=== PATIENT | male | born 1955 | race Hispanic/Latino ===

== ENCOUNTER 2019-02-04 12:43 | Inpatient (IN) | payer OTHER ==
[~2019-02-04] VITALS: Ht 165.1 cm; Wt 84.8 kg
[2019-02-04 13:27] LABS: BASOPHILS % 0.5 % (0.0-1.0); EOSINOPHILS # (AUTO) 0.1 (0.0-0.4); EOSINOPHILS % 1.9 % (0.0-6.0); LYMPHOCYTES % 25.8 % (18.0-39.1); MEAN CORPUSCULAR HEMOGLOBIN 22.3 pg (28-32); MEAN CORPUSCULAR HGB CONC 26.3 g/dL (31-35); MEAN CORPUSCULAR VOLUME 84.8 fL (81-99); MONOCYTES # (AUTO) 0.4 (0.2-0.8); MONOCYTES % 11.7 % (4.4-11.3); NEUTROPHILS # (AUTO) 2.2 (2.1-6.9); NEUTROPHILS % 59.6 % (38.7-80.0); PLATELET COUNT 141 x10e3/uL (140-360); RED BLOOD COUNT 2.11 x10e6/uL (4.3-5.7); RED CELL DISTRIBUTION WIDTH 16.4 % (11.7-14.4)
[2019-02-04 13:49] LABS: ALANINE AMINOTRANSFERASE 16 IU/L (0-55); ALKALINE PHOSPHATASE 54 IU/L (40-150); BLOOD UREA NITROGEN 14 mg/dL (7-26); BUN/CREATININE RATIO 18 (6-25); CALCIUM 8.1 mg/dL (8.4-10.2); CARBON DIOXIDE 24 mmol/L (22-29); CHLORIDE 106 mmol/L (98-107); CREATINE KINASE 71 IU/L (30-200); CREATININE, SERUM 0.78 mg/dL (0.72-1.25); EST GLOMERULAR FILTRATION RATE > 60 ML/MIN (60-); GLUCOSE 193 mg/dL (74-118); SODIUM 137 mmol/L (136-145)
[2019-02-04 13:51] LABS: HEMATOCRIT 17.9 % (38.2-49.6); HEMOGLOBIN 4.7 g/dL (14.0-18.0)
--- NOTE | 2019-02-04 13:56 | NUR ---
PT BROUGHT BACK TO ROOM 3 AT THIS TIME; DR. LANG PERFORMED BEDSIDE CHRISTOPHER AND OBTAINED SPECIMEN FOR OCCULT STOOL, PER EXAM AT THIS TIME PT IS POSITIVE; PT UPDATED ON PLAN OF CARE AND INTENT TO ADMIT FOR TREATMENT.
[2019-02-04] MEDS ORDERED: SODIUM CHLORIDE 0.9% 250ML 250 ML IV ONE (14:00)
--- NOTE | 2019-02-04 14:06 | NUR ---
DR. LANG EDUCATING PT DAUGHTER AT BEDSIDE IN REGARDS TO TREATMENT AND INTENT TO TRANSFUSE BLOOD, PT AND FAMILY MADE AWARE OF RISKS, BENEFITS, AND ALTERNATIVE TREATMENTS AT THIS TIME; PT DAUGHTER AND MYSELF TRANSLATING FOR DR. LANG AT BEDSIDE AND INFORMING PATIENT. PT SPEAKS MALAGASY AND UNDERSTANDS SOME L[place]OURGISH.
--- NOTE | 2019-02-04 14:16 | Diagnostic Imaging Report ---
A single frontal view of the chest. HISTORY: Swollen feet COMPARISON: None available. DISCUSSION: Portable technique, limits sensitivity of the exam. Overlying monitoring leads. Tubes/Lines: None Lungs and pleura: The lungs are well inflated. No evidence of a consolidative pneumonia or pulmonary alveolar edema. No definite pleural effusion or pneumothorax is identified. Heart and mediastinum: The cardiomediastinal silhouette appear(s) unremarkable. Bones and soft tissues: Appear unremarkable, given this limited exam. IMPRESSION: No acute radiographic abnormality. Signed by: Dr. Octavio Bhatt D.O., M.M.M. on 02/04/2019 2:13 PM
--- NOTE | 2019-02-04 14:18 | NUR ---
RECEIVED CALL FROM LAB REGARDING TYPE AND SCREEN, INFORMED THAT PT BLOOD PRESENT WITH ANTIBODIES FROM PREVIOUS TRANSFUSION (OF NOVEMBER 2018) RECEIVED IN [place], SPECIMENS ARE TO BE SENT OUT TO EXTERNAL CLINICAL LAB.
[2019-02-04 14:28] LABS: ANISOCYTOSIS SLIGHT; HYPOCHROMASIA SLIGHT; PLATELET ESTIMATE ADEQUATE; PLATELET MORPHOLOGY COMMENT NORMAL; RBC MORPHOLOGY COMMENT NORMAL
--- NOTE | 2019-02-04 14:32 | NUR ---
PT GIVEN EDUCATIONAL PAMPHLET FROM [employer] [facility] [place] TO ENSURE PT IS FULLY AWARE OF PLAN OF CARE, PT GIVEN TIME TO ASK QUESTIONS, NONE VOICED AT THIS TIME.
--- NOTE | 2019-02-04 14:38 | NUR ---
AT BEDSIDE TO WITNESS FOR IMFORMED CONSENT, PT OFFERED [employer]RBAN ANTHROPOLOGIST SERVICES, BUT REFUSING AT THIS TIME, STATES THAT HE UNDERSTANDS PROCEDURE AND MY BRUNEIAN, ALONG WITH DAUGHTER IS ABLE TO TRANSLATE. CONSENT FORM FILLED AND PLACED ON CHART AT THIS TIME.
--- NOTE | 2019-02-04 14:52 | NUR ---
PT DENIES ANY SYMPTOMS AT THIS TIME, DENIES BLOOD IN STOOL OR URINE, DENIES WEAKNESS OR FEELING OF SYNCOPE; PT COLOR WNL, NOT PALE OR CLAMMY; PT VITALS REMAIN WNL; PT ON STRETCHER, BED LOW/LOCKED, CALL LIGHT IN EASY REACH.
[2019-02-04] MEDS ORDERED: DEXTROSE 50% SYRINGE 50 ML IV PRN (15:00)
[2019-02-04] MEDS ORDERED: HYDRALAZINE HCL 20 MG/ML VIAL IV PRN (15:00)
--- NOTE | 2019-02-04 15:10 | NUR ---
CALLED DR. LUND ON-CALL LINE REGARDING CT ABD/PEL W/; SPOKE WITH GWYN MCNEAL NP AND OBTAINED APPROVAL TO OBTAIN EXAM TODAY INSTEAD OF TOMORROW AM.
--- NOTE | 2019-02-04 15:59 | Diagnostic Imaging Report ---
EXAM: CT of the abdomen and pelvis WITH contrast HISTORY: Anemia, GI bleed COMPARISON: None. TECHNIQUE: The abdomen and pelvis were scanned utilizing a multidetector helical scanner. Coronal and sagittal reformats are provided. PROTOCOL: Routine IV CONTRAST: 100 cc of Isovue-370. ORAL CONTRAST: None, which limits sensitivity and specificity of the exam. RADIATION DOSE: Total DLP: 511.09 mGy*cm Estimated effective dose: (DLP x 0.015 x size factor) Dose modulation, iterative reconstruction, and/or weight based adjustment of the mA/kV was utilized to reduce the radiation dose to as low as reasonably achievable. COMPLICATIONS: None FINDINGS: LOWER THORAX: Minimal bilateral atelectasis versus scarring. HEPATOBILIARY: No mass. Minimal central intrahepatic biliary prominence and borderline dilation of the common bile duct (0.7 cm in diameter). The gallbladder is predominantly contracted without a calcified stone. SPLEEN: No splenomegaly. PANCREAS: No focal masses or ductal dilatation. ADRENALS: No discrete adrenal nodule. KIDNEYS/URETERS: No hydronephrosis, stones, or definite solid mass lesions. A 0.8 cm hypodensity at the interpolar region of the left kidney, too small to characterize, but statistically most likely a small cyst. PELVIC ORGANS/BLADDER: The visualized pelvic organs appear unremarkable. GI TRACT: No dilation or wall thickening identified. The appendix is normal. PERITONEUM / RETROPERITONEUM: No free air or fluid. LYMPH NODES: No pathologically enlarged lymph node. VESSELS: Diffuse scattered atherosclerotic vascular calcifications. BONES and JOINTS: No aggressive osseous lesion or acute fracture. Mild left convex curvature of the lumbar spine. Moderate left and mild right degenerative changes of the hips. SOFT TISSUES: Very small fat-containing umbilical hernia, without associated inflammatory changes. IMPRESSION: 1. Borderline central intrahepatic and common bile duct dilation, recommend correlation with laboratory values for evidence of biliary obstruction. 2. No specific CT evidence of the source of the reported GI bleed. Signed by: Dr. Octavio Bhatt D.O., M.M.M. on 02/04/2019 3:55 PM
[2019-02-04] MEDS ORDERED: PANTOPRAZOLE SOD 40 MG TABEC PO SCH (16:30)
[2019-02-04] MEDS ORDERED: SODIUM CHLORIDE 0.9% 50ML 50 ML ONE (16:36)
[2019-02-04] MEDS ORDERED: IOPAMIDOL 370 MG/ML 200 ML INFUS..BTL INJ ONE (16:36)
[2019-02-04] MEDS ORDERED: ACETAMINOPHEN 325 MG TAB PO PRN (16:45)
[2019-02-04] MEDS ORDERED: ONDANSETRON HCL INJ 2MG/ML 2ML 2 MG/ML VIAL IV PRN (16:45)
[2019-02-04] MEDS: INSULIN REGULAR, HUMAN 100 UNIT/1 ML 3ML VIAL SQ SCH ×2 (17:35→21:00)
--- NOTE | 2019-02-04 20:38 | NUR ---
Received report from SANDRA Chamberlain nurse. Daughter at bedside. Call light within reach. Patient in no pain or distress.
[2019-02-04 20:59] VITALS: BP 116/56
[2019-02-04] MEDS ORDERED: SODIUM CHLORIDE 0.9% 250ML 500 ML ONE (22:12)
[2019-02-04 22:35] VITALS: BP 116/56
[2019-02-04] MEDS ORDERED: FERROUS FUMARA324 MG PO (22:48)
[2019-02-04] MEDS ORDERED: OMEPRAZOLE40 MG PO (22:48)
[2019-02-04 22:52] VITALS: BP 116/56
[2019-02-04] MEDS ORDERED: PANTOPRAZOLE 40 MG 10ML VIAL IV STA (23:26)
[2019-02-05] VITALS (8 sets, daily range): BP systolic 110–157; BP diastolic 51–72
[2019-02-05 05:58] LABS: BASOPHILS % 0.5 % (0.0-1.0); EOSINOPHILS # (AUTO) 0.1 (0.0-0.4); EOSINOPHILS % 1.5 % (0.0-6.0); HEMATOCRIT 23.8 % (38.2-49.6); LYMPHOCYTES # (AUTO) 1.2 (1.0-3.2); LYMPHOCYTES % 29.4 % (18.0-39.1); MEAN CORPUSCULAR HEMOGLOBIN 22.8 pg (28-32); MEAN CORPUSCULAR HGB CONC 27.7 g/dL (31-35); MEAN CORPUSCULAR VOLUME 82.1 fL (81-99); MONOCYTES # (AUTO) 0.5 (0.2-0.8); MONOCYTES % 13.3 % (4.4-11.3); NEUTROPHILS # (AUTO) 2.2 (2.1-6.9); PLATELET COUNT 124 x10e3/uL (140-360); RED CELL DISTRIBUTION WIDTH 16.2 % (11.7-14.4); RETICULOCYTE % 7.1 % (0.8-2.2)
[2019-02-05 06:10] LABS: HEMOGLOBIN 6.6 g/dL (14.0-18.0)
--- NOTE | 2019-02-05 06:10 | NUR ---
Received critical from lab of patient's hemoglobin being 6.6. Called and talked to CHAN Harrell for Dr. Dhaliwal and told her patient's hemoglobin. She did not give any orders
[2019-02-05 06:36] LABS: FERRITIN 5.02 ng/mL (21.81-274.66); FREE T4 (FREE THYROXINE) 0.65 ng/dL (0.8-1.8); THYROID STIMULATING HORMONE 1.194 uIU/mL (0.350-4.940)
[2019-02-05 06:55] LABS: FOLATE 12.6 ng/mL (7.0-15.4)
--- NOTE | 2019-02-05 07:13 | NUR ---
Gave report to oncoming nurse. Call light within reach. Patient in bed.
[2019-02-05] MEDS ORDERED: MELATONIN 5 MG TABLET PO PRN (07:30)
[2019-02-05] MEDS ORDERED: ALBUTEROL/IPRATROPIUM 3 ML NEB NEB PRN (07:30)
[2019-02-05 07:31] LABS: ANISOCYTOSIS MARKED; HYPOCHROMASIA MODERATE; OVALOCYTES FEW; PLATELET ESTIMATE SLIGHTLY DECREASED; PLATELET MORPHOLOGY COMMENT FEW LARGE; POLYCHROMASIA MODERATE; RBC MORPHOLOGY COMMENT ABNORMAL; TARGET CELLS FEW
[2019-02-05 07:32] LABS: POIKILOCYTOSIS MODERATE
[2019-02-05] MEDS: PANTOPRAZOLE 40 MG 10ML VIAL IV SCH ×2 (08:20→18:36)
[2019-02-05] MEDS ORDERED: BISACODYL 5 MG TAB EC PO PRN (09:45)
[2019-02-05] MEDS ORDERED: BISACODYL 5 MG TAB EC PO ONE ×4 (10:00→13:00)
[2019-02-05] MEDS ORDERED: BISACODYL 5 MG TAB EC PO SCH ×4 (10:30→11:30)
[2019-02-05] MEDS: BISACODYL 5 MG TAB EC PO PRN ×2 (10:33→11:23)
[2019-02-05] MEDS ORDERED: CITRATE OF MAGNESIA 300ML BOTTLE PO ONE ×2 (11:00→12:00)
--- NOTE | 2019-02-05 15:50 | NUR ---
pt off unit for procedure. MD made aware of labs via recovery nurse, pt has antibodies and blood now ready for 3rd unit.
[2019-02-05] MEDS ORDERED: CYANOCOBALAMIN INJ 1,000 MCG/ML VIAL IM ONE (17:00)
[2019-02-05] MEDS ORDERED: MIDAZOLAM HCL 2 MG/2 ML VIAL ONE (18:07)
[2019-02-05] MEDS ORDERED: FENTANYL CITRATE/PF 100MCG/2 ML INJ ONE (18:07)
[2019-02-05] MEDS: IRON SUCROSE 100 MG in SODIUM CHLORIDE 0.9% 100 ML 100 ML IV SCH (18:36)
--- NOTE | 2019-02-05 19:00 | NUR ---
pt is to recv 1 more unit of blood. info passed to night nurse.
[2019-02-05] MEDS ORDERED: SODIUM CHLORIDE 0.9% 250ML 250 ML ONE (20:42)
[2019-02-06] VITALS: BP 122/62
--- NOTE | 2019-02-06 00:29 | Operative Report ---
DATE OF PROCEDURE: 02/05/2019 SURGEON: Thomas Shoemaker MD PROCEDURE PERFORMED: Esophagogastroduodenoscopy with biopsies and a colonoscopy with polypectomy and biopsies. REFERRING PHYSICIAN: Da Dickinson MD INDICATIONS FOR EGD: Iron deficiency anemia. INDICATIONS FOR COLONOSCOPY: Iron deficiency anemia. MEDICATIONS: The patient was done under MAC. Please see anesthesiologist's note. PROCEDURE IN DETAIL: With the patient in left lateral decubitus position, a flexible fiberoptic Olympus gastroscope was introduced into the esophagus under direct visualization without any difficulty. There was some patchy erythema noted in distal esophagus. The scope was then advanced with ease into the stomach. Mucosa overlying the antrum and the body revealed some patchy erythema and [id number] edema and biopsies were obtained and sent to stain for H pylori. The pylorus was of normal contour and shape, it was intubated with ease and the scope was advanced all the way to the second portion of the duodenum. Biopsies were obtained from the proximal second portion and duodenal bulb to rule out sprue. The scope was then withdrawn back into the stomach and retroflexed. Mucosa overlying the fundus and cardia appeared to be within normal limits. The scope was then straightened out, it was subsequently withdrawn. The patient tolerated the procedure well. IMPRESSION: 1. Distal esophagitis. 2. Gastritis, biopsied. Biopsies sent to stain for H pylori. 3. Rule out sprue. PLAN: Follow up histology. Initiate Protonix 40 mg one p.o. q.a.m. a.c. The patient was then turned around after adequate lubrication of the anal canal, a flexible fiberoptic Olympus colonoscope was inserted into the rectum with ease and advanced all the way to the cecum. One polyp was snared per cold polypectomy snare and one polyp was removed per cold biopsy forceps from the cecum. The ileocecal valve was intubated and biopsies were obtained from the terminal ileum. The scope was then withdrawn back into the colon. It was then withdrawn slowly and one polyp was removed per cold biopsy forceps from the ascending colon. There was approximately a 6 mm submucosal polypoid lesion noted in the distal transverse colon suspicious for a lipoma and that was biopsied. The descending and sigmoid appeared to be within normal limits. One polyp was snared from the rectum, one polyp was removed per snare electrocautery from the rectum. The scope was then retroflexed into the distal rectum and moderate-sized internal hemorrhoids were noted, none of which was actively bleeding. The scope was then straightened out, it was subsequently withdrawn. The patient tolerated the procedure well. IMPRESSION: 1. Cecal polyps x2, one removed per cold snare polypectomy and one with cold biopsy forceps. 2. Ascending colon polyp removed with cold biopsy forceps. 3. Rule out lipoma transverse colon. 4. Rectal polyp removed per snare electrocautery. 5. Internal hemorrhoids, none actively bleeding. PLAN: Followup histology. Initiate high-fiber, low-fat diet. Initiate high-fiber supplement. The patient will need a small bowel series after high-fiber supplement. The patient will need a small bowel series and if negative, a capsule endoscopy will be in order. The patient might benefit from a followup colonoscopy in 3 years. Thomas Shoemaker MD [facility] [place] /[id number] cc: MD Da Griggs III, MD
[2019-02-06 03:16] LABS: BASOPHILS % 0.5 % (0.0-1.0); EOSINOPHILS # (AUTO) 0.1 (0.0-0.4); EOSINOPHILS % 1.1 % (0.0-6.0); HEMATOCRIT 27.8 % (38.2-49.6); HEMOGLOBIN 8.1 g/dL (14.0-18.0); LYMPHOCYTES % 18.2 % (18.0-39.1); MEAN CORPUSCULAR HEMOGLOBIN 23.8 pg (28-32); MEAN CORPUSCULAR HGB CONC 29.1 g/dL (31-35); MEAN CORPUSCULAR VOLUME 81.8 fL (81-99); MONOCYTES # (AUTO) 0.6 (0.2-0.8); NEUTROPHILS # (AUTO) 3.9 (2.1-6.9); NEUTROPHILS % 69.8 % (38.7-80.0); PLATELET COUNT 129 x10e3/uL (140-360); RED CELL DISTRIBUTION WIDTH 16.1 % (11.7-14.4)
[2019-02-06 03:26] LABS: INR 1.12; PROTHROMBIN TIME 14.9 seconds (11.9-14.5)
[2019-02-06 03:33] LABS: ANION GAP 12.8 mmol/L (8-16); BLOOD UREA NITROGEN 11 mg/dL (7-26); BUN/CREATININE RATIO 15 (6-25); CALCIUM 8.3 mg/dL (8.4-10.2); CARBON DIOXIDE 22 mmol/L (22-29); CHLORIDE 106 mmol/L (98-107); CREATININE, SERUM 0.71 mg/dL (0.72-1.25); EST GLOMERULAR FILTRATION RATE > 60 ML/MIN (60-); GLUCOSE 93 mg/dL (74-118); POTASSIUM 3.8 mmol/L (3.5-5.1); SODIUM 137 mmol/L (136-145)
[2019-02-06 04:00] VITALS: BP 137/67
[2019-02-06] MEDS ORDERED: PANTOPRAZOLE SO40 MG PO (04:58)
[2019-02-06] MEDS ORDERED: ASCORBIC ACID500 MG PO (04:58)
[2019-02-06] MEDS ORDERED: FERROUS SULFAT325 M1 PO (04:58)
--- NOTE | 2019-02-06 07:05 | NUR ---
PT ASLEEP RESP EVEN AND UNLABORED AT THIS TIME, NO DISTRESS NOTED, PT EASILY AROUSED TO VOICE, PT HAS FAMILY MEMBER AT BEDSIDE, CALL LIGHT IN REACH.
[2019-02-06 08:14] VITALS: BP 149/67
[2019-02-06 08:33] VITALS: BP 149/67
[2019-02-06] MEDS: PANTOPRAZOLE 40 MG 10ML VIAL IV SCH ×2 (08:36→17:54)
[2019-02-06] MEDS ORDERED: CYANOCOBALAMIN INJ 1,000 MCG/ML VIAL IM SCH (09:00)
[2019-02-06] MEDS ORDERED: GLUCAGON FOR INJ 1 MG VIAL ONE (10:54)
[2019-02-06] MEDS ORDERED: LIDOCAINE HCL 2% LOCAL INJ 5 ML SDV VIAL INJ ONE (10:54)
[2019-02-06] MEDS ORDERED: PROPOFOL IV EMULSION 10 MG/ML 50 ML VIAL ONE (10:54)
[2019-02-06 11:59] VITALS: BP 146/65
--- NOTE | 2019-02-06 14:20 | NUR ---
Visit made by the Spiritual Care Department Pastoral Visitor, Janet Jensen. PV provided pastoral presence, prayer, hospitality, and supportive listening. Pastoral Visitor informed pt/family of the scope of Corporate Analyst Services and availability. YAEL VIRAMONTES Transplant Case Manager Spiritual Care Department O: [phone] Pager: [phone] ([phone] number calling from)
[2019-02-06 14:41] LABS: BASOPHILS % 0.7 % (0.0-1.0); EOSINOPHILS # (AUTO) 0.1 (0.0-0.4); EOSINOPHILS % 1.7 % (0.0-6.0); HEMATOCRIT 26.4 % (38.2-49.6); HEMOGLOBIN 7.7 g/dL (14.0-18.0); LYMPHOCYTES # (AUTO) 0.9 (1.0-3.2); LYMPHOCYTES % 20.5 % (18.0-39.1); MEAN CORPUSCULAR HEMOGLOBIN 23.7 pg (28-32); MEAN CORPUSCULAR HGB CONC 29.2 g/dL (31-35); MEAN CORPUSCULAR VOLUME 81.2 fL (81-99); MONOCYTES # (AUTO) 0.5 (0.2-0.8); NEUTROPHILS # (AUTO) 2.7 (2.1-6.9); NEUTROPHILS % 64.9 % (38.7-80.0); PLATELET COUNT 139 x10e3/uL (140-360); RED BLOOD COUNT 3.25 x10e6/uL (4.3-5.7)
--- NOTE | 2019-02-06 15:29 | Diagnostic Imaging Report ---
SMALL BOWEL FOLLOW THROUGH HISTORY: Anemia [employer](S): Gi Manriquez MD Comparison: CT abdomen and pelvis of 02/04/2019 Procedure: Small bowel follow through exam was performed using oral barium. Preliminary image was obtained before administration of contrast and serial overhead images were obtained after administration of oral barium. Fluoroscopy was performed and spot images were obtained. DISCUSSION: GASKET SUPERVISOR: The bowel gas pattern is non-obstructive. ESOPHAGUS: Motility: Within normal limits. Mucosa: Unremarkable. Distensibility: Normal. GASTROESOPHAGEAL JUNCTION: No evidence of hiatal hernia. GASTROESOPHAGEAL REFLUX: None observed. STOMACH: Normally distensible and demonstrates normal contours and mucosal pattern. DUODENUM: Bulb and sweep are normal. Duodenal-jejunal junction is in the normal expected position. Small bowel loops are normal in caliber and distribution. There is no evidence of fistula, mucosal changes, stricture or dilation. The transit time was within normal limits. Fluoroscopy Time: 0.8 minutes Cumulative Dose: 7.99 mGy IMPRESSION: Unremarkable small bowel series. Signed by: Gi Manriquez MD on 02/06/2019 3:26 PM
[2019-02-06 16:42] VITALS: BP 139/64
[2019-02-06] MEDS: IRON SUCROSE 100 MG in SODIUM CHLORIDE 0.9% 100 ML 100 ML IV SCH (18:11)
--- NOTE | 2019-02-06 19:20 | NUR ---
Report given to oncoming nurse. Pt stable.
--- NOTE | 2019-02-06 19:35 | NUR ---
DISCHARGE INSTRUCTIONS GIVEN TO PATIENT. PATIENT ACKNOWLEDGE TEACHING AND SIGNS DISCHARGE FORM. PRESCRIPTION GIVEN. IV TO RIGHT AND LEFT AC REMOVED. DISCHARGED PATIENT IN GOOD CONDITION.
--- NOTE | 2019-02-07 07:27 | Discharge Summary ---
ADMISSION DIAGNOSES: Acute blood loss anemia secondary to gastrointestinal bleed, bilateral lower extremity edema, shortness of breath, obesity with a BMI of 31.1. DISCHARGE DIAGNOSES: Acute blood loss anemia secondary to gastrointestinal bleed, bilateral lower extremity edema, shortness of breath, obesity with a BMI of 31.1, gastritis, esophagitis, rule out deep venous thrombosis, rule out congestive heart failure. MEDICAL HISTORY: GERD and anemia. SURGICAL HISTORY: None. FAMILY HISTORY: Noncontributory. SOCIAL HISTORY: The patient admits to quitting alcohol use on November 03. HOSPITAL COURSE: A 63-year-old male complains of bilateral lower extremity edema and pain, that began 1 week ago and continues to worsen. He admits to driving to [facility] recently, which is about a [address] way. He also has associated shortness of breath and dry cough. He denies fever and congestion. He has not used antibiotics and does not have recent sick contacts. He complains of black stools that started Tuesday and has been taking iron pills since November. On admission, the patient's hemoglobin was 4.7. The patient was given a total of 3 PRBCs. Bilateral lower extremity venous Doppler was negative. Echo showed an EF of 55%. Chest x-ray was negative. The patient had an EGD and colonoscopy, which showed gastritis, esophagitis, and internal hemorrhoids, none actively bleeding. Stool for blood was positive. The patient then had a small bowel series, which was also negative. Hemoglobin remained stable after the 3 units of blood, but the patient was discharged home with prescriptions for Protonix, iron, and vitamin C. He was advised to follow up with Gastroenterology for further GI studies and primary care in 1 to 2 weeks. The patient understands discharge instructions and agrees to plan. Vital signs stable, the patient afebrile. Dictated by Sharri Dorsey, CHAN MD EVERARDO Griggs/JONAH /[id number]
[2019-02-08 06:10] LABS: ENDOMYSIAL ANTIBODIES, IGA Negative (Negative)
== END 2019-02-06 19:35 | disposition home or self-care (01) | DRG 378 ==
LOC: ER 12:43 → ERHOLD 14:02 → MED/SURG 20:38
PROVIDERS: ADMIT Internal Medicine; ATTEND Internal Medicine
PROC: 0DB98ZX Excision of Duodenum, Via Natural or Artificial Opening Endoscopic, Diagnostic (ICD-10-PCS; principal; 2019-02-04)
PROC: 0DB78ZX Excision of Stomach, Pylorus, Via Natural or Artificial Opening Endoscopic, Diagnostic (ICD-10-PCS; 2019-02-04)
PROC: 0DBK8ZX Excision of Ascending Colon, Via Natural or Artificial Opening Endoscopic, Diagnostic (ICD-10-PCS; 2019-02-04)
PROC: 0DBE8ZX Excision of Large Intestine, Via Natural or Artificial Opening Endoscopic, Diagnostic (ICD-10-PCS; 2019-02-04)
PROC: 0DBB8ZX Excision of Ileum, Via Natural or Artificial Opening Endoscopic, Diagnostic (ICD-10-PCS; 2019-02-04)
PROC: 0DBH8ZX Excision of Cecum, Via Natural or Artificial Opening Endoscopic, Diagnostic (ICD-10-PCS; 2019-02-04)
DX: K29.71 Gastritis, unspecified, with bleeding (principal); D62 Acute posthemorrhagic anemia; R60.0 Localized edema; K63.5 Polyp of colon; E66.9 Obesity, unspecified; Z68.31 Body mass index [BMI] 31.0-31.9, adult; K29.70 Gastritis, unspecified, without bleeding
CPT/HCPCS: 36415; 43239; 45380; 45385; 71045; 74177; 74250; 80048; 80053; 82270; 82550; 82553; 82607; 82728; 82746; 82784; 82948; 83036; 83516; 83540; 83880; 84439; 84443; 84466; 84484; 85025; 85045; 85379; 85610; 86256; 86850; 86870; 86880; 86900; 86905; 86922; 88305; 88312; 93005; 93306; 93970; 94760; 99001; 99285; J1610; J1756; J2001; J2250; J3010; J3420; J7050; P9016; Q9967

== ENCOUNTER 2021-10-31 11:55 | Emergency (ER) | payer OTHER ==
[~2021-10-31] VITALS: Ht 165.1 cm; Wt 84.8 kg
[~2021-10-31 11:55] MED LIST: ASCORBIC ACID500 MG PO; FERROUS FUMARA324 MG PO; FERROUS SULFAT325 M1 PO; OMEPRAZOLE40 MG PO; PANTOPRAZOLE SO40 MG PO
[2021-10-31] MEDS ORDERED: AUGMENTIN 500-1 EACH PO (14:38)
[2021-10-31] MEDS ORDERED: NAPROXEN SODIU275 MG PO (14:45)
== END 2021-10-31 14:59 | disposition home or self-care (01) ==
LOC: ER 12:24
DX: S00.83XA Contusion of other part of head, initial encounter (principal); S09.22XA Traumatic rupture of left ear drum, initial encounter; W22.8XXA Striking against or struck by other objects, initial encounter; Y92.488 Other paved roadways as the place of occurrence of the external cause; E11.9 Type 2 diabetes mellitus without complications; D64.9 Anemia, unspecified; K21.9 Gastro-esophageal reflux disease without esophagitis
CPT/HCPCS: 70450; 72125; 99283